=== PATIENT | female | born 1970 | race Caucasian/White ===

== ENCOUNTER → 2019-05-18 | Outpatient (CLI) | payer OTHER ==
--- NOTE | 2019-05-19 11:31 | RADIOLOGY IMAGING REPORT ---
FACILITY: [facility] PATIENT NAME: LIZ AUSTIN : [id number] MR: [id number] V: [id number] EXAM DATE: [id number] ORDERING PHYSICIAN: STEFAN CUTLER TECHNOLOGIST: Aleksandra Gamez PROCEDURE: BILATERAL DIGITAL SCREENING MAMMOGRAM WITH CAD ASSISTED INTERPRETATION & 3D TOMOSYNTHESIS REASON FOR STUDY: Screening. COMPARISON: 04/29/2017 with priors to 06/24/2012. VIEWS OBTAINED: 2D & 3D full field CC & MLO projections. BREAST DENSITY: The breast parenchyma is heterogeneously dense. MAMMOGRAM FINDINGS: Asymmetry in the inferior Left breast in the MLO view previously over lapping fatty and fibroglandular elements on the Tomosynthesis images with generally similar asymmetry in the area of 06/24/2012 and 08/20/2013 and without correlate in the CC or lateral exaggerated CC views. Overall there are no mammographic findings concerning for malignancy. No significant interval change. IMPRESSION: BIRADS 1: Negative. DIAGNOSTIC CATEGORY 1--NEGATIVE. RECOMMENDATIONS: ROUTINE MAMMOGRAM AND CLINICAL EVALUATION IN 1YR. Dictated by: Walter Zhou on 05/19/2019 at 9:17 Transcribed by: DIONE on 05/19/2019 at 10:46 Approved by: Walter Zhou on 05/19/2019 at 11:27 [facility]
== END ==
LOC: MAMO 01:00
PROVIDERS: ATTEND Nurse Practitioner Family
DX: Z12.31 Encounter for screening mammogram for malignant neoplasm of breast (principal)
CPT/HCPCS: 77063; 77067